=== PATIENT | male | born 1975 | race Caucasian/White ===

== ENCOUNTER 2020-03-08 17:39 | Emergency (ER) | payer OTHER ==
[~2020-03-08] VITALS: Ht 177.8 cm; Wt 86.2 kg
--- OUTSIDE RECORDS SUMMARY | ~2020-03-08 | XMS | Encounter Summary ---
Demographics + + + | Address | [address] | | | [place] [address] | + + + | Home Phone | | + + + | Preferred Language | Unknown | + + + | Marital Status | | + + + | Scientology Affiliation | Unknown | + + + | Race | White | + + + | Ethnic Group | Unknown | + + + Author + + + | Author | [facility] | | | and [place] | + + + | Organization | [facility] | | | and [place] | + + + | Address | Unknown | + + + | Phone | Unavailable | + + + Support + + +---------+ + | Name | Relationship | Address | Phone | + + +---------+ + | Patricio Delatorre | ECON | Unknown | | + + +---------+ + Care Team Providers + +------+ + | Care Resource Manager Name | Role | Phone | + +------+ + PCP | Unavailable | + +------+ + Encounter Details +--------+ + + + + | Date | Type | Department | Care Team | Description | +--------+ + + + + | 03/31/ | Abstract | [facility] | | | 2011 | | Conversion Location | SR | | | | | [address] | | | | | | [place], [place] | | | | | | [address] | | | | | | [phone] | | | +--------+ + + + + Social History + +-------+ +--------+------+ | Tobacco Use | Types | Packs/Day | Years | Date | | | | | Used | | + +-------+ +--------+------+ | Never Assessed | | | | | + +-------+ +--------+------+ + + + | Sex Assigned at | Date Recorded | | | | + + + | Not on file | | + + + documented as of this encounter Last Filed Vital Signs + + + + + | Vital Sign | Reading | Time Taken | Comments | + + + + + | Blood Pressure | 120/80 | 08/14/2011 12:00 AM | | | | | PST | | + + + + + | Pulse | - | - | | + + + + + | Temperature | - | - | | + + + + + | Respiratory Rate | - | - | | + + + + + | Oxygen Saturation | - | - | | + + + + + | Inhaled Oxygen | - | - | | | Concentration | | | | + + + + + | Weight | 83 kg (183 lb) | 08/14/2011 12:00 AM | | | | | PST | | + + + + + | Height | 177.8 cm (5' 10") | 07/07/2011 12:00 AM | | | | | PST | | + + + + + | Body Mass Index | 26.26 | 07/07/2011 12:00 AM | | | | | PST | | + + + + + documented in this encounter Plan of Treatment Not on filedocumented as of this encounter Visit Diagnoses Not on filedocumented in this encounter
--- OUTSIDE RECORDS SUMMARY | ~2020-03-08 | XMS | Encounter Summary ---
Demographics + + + | Address | [address] | | | [place] [address] | + + + | Home Phone | | + + + | Preferred Language | Unknown | + + + | Marital Status | | + + + | Pentecostalism Affiliation | Unknown | + + + | Race | White | + + + | Ethnic Group | Unknown | + + + Author + + + | Author | [facility] | | | and [place] | + + + | Organization | [facility] | | | and [...] Team Providers + +------+ + | Care Detective Captain Name | Role | Phone | + +------+ + PCP | Unavailable | + +------+ + Encounter Details +--------+ + + + + | Date | Type | Department | Care Team | Description | +--------+ + + + + | 07/30/ | [facility] | [facility] | Chester Brennan | | | 2011 | Encounter | MED CTR XRAY [address] | MD [address] | | | | | [place] | [address] [place] | | | | | [place], [place] [address] | [place] [address] | | | | | [phone] | [phone] | | | | | | | | +--------+ + + + [...] + + documented as of this encounter Miscellaneous Notes Miscellaneous - Chester Brennan MD - 07/30/2011 9:08 AM PSTDATE: 07/30/2011 HOLTER MONITOR REPORT REFERRING PHYSICIAN: Chester Brennan MD PhD INDICATION: Bradycardia. RESULTS: A total of 23 hours and 54 minutes were analyzed with the heart rate ranging from a minium of 43 to a maximum of 149 with a mean heart rate of 67 beats per minute. Underlyi ng rhythm was sinus. There were no ventricular ectopic beats seen. There were 124 isolated PAC's, including 3 couplets, but no significant sustained dysrhythmias were observed. The p atient's periods of bradycardia coincided with overnight hours from 2 a.m. until 9 a.m. No symptoms were recorded. There were no pauses greater than 2.0 seconds observed. IMPRESSION: 24-hour Holter monitor notable for underlying sinus rhythm with mean heart of 67 beats per minute, occasional PAC's in the absence of any reported symptoms, and no signi ficant dysrhythmias. DICTATED BY: Chester Brennan MD PhD Cardiology JOB #: [id number] EXT JOB #:[id number] EDITED: 08/05/2011 10:02 <Electronically Signed by Rui Brennan MD> 08/05/11 1420 documented in this encounter Plan of Treatment Not on filedocumented as of this encounter Procedures + +--------+ + + + | Procedure Name | Priori | Date/Time | Associated Diagnosis | Comments | | | ty | | | | + +--------+ + + + | ECHO COMPLETE | | 07/30/2011 | | Results for this | | | | 9:08 AM | | procedure are in the | | | | PST | | results section. | + +--------+ + + + documented in this encounter Results ECHO Complete (07/30/2011 9:08 AM PST) + + | Specimen | + + | | + + + + + | Narrative | Performed At | + + + | [facility] Diagnostic Imaging Department | [facility] | | [address] [facility] | [facility] | | E C H O C A R D | DIAG IMG | | I O G R A P H Y R E P O R T HEIGHT: 5'10" | | | WEIGHT: 190# INSERT CUTTER: KH REFERRING DR: BARBARA | | | READING DR: BARBARA DIAGNOSIS: BRADYCARDIA | | | | | | M E A S U R E M E N T S | | | Aortic Root: 37 mm LV Diameter-diastole: | | | 48 mm Aortic Cusp Sep : 22 mm LV | | | Diameter--systole: 32 mm LA: 36 mm | | | Fractional Shortenin % IVS--diastole: | | | 8 mm PFV Aortic Valve: IVS--systole: | | | 12 mm MPG Mitral Valve: mmHg | | | LVPW--diastole: 8 mm PFV TR Jet: | | | 1.70 m/s LVPW--systole: 13 mm RA/RV | | | PP.6 mmHg | | | | | | ECHOCARDIOGRAM: 07/30/2011 INDICATION: Bradycardia. | | | TECHNICAL: The quality of the study is good. This is a complete | | | transthoracic echocardiogram including 2D, M-Mode, Doppler and color | | | flow Doppler analysis. HEMODYNAMICS: Patient was in underlying | | | sinus bradycardia through the procedure with a ventricular rate in | | | the upper 50's. RESULTS: CHAMBERS: The left ventricle of | | | normal end diastolic and end systolic dimensions with normal wall | | | thickness and regional wall motion. LVEF is calculated at 60%. | | | Bilateral atria are of normal size. The right ventricle is of | | | normal size and systolic function. VALVES: The aortic valve | | | is a normal trileaflet valve with good opening. There is no | | | stenosis or insufficiency noted. Mitral valve is normal without | | | any significant thickening or prolapse. There is trace regurgitation | | | seen. Tricuspid valve is normal with trace amount insufficiency | | | with a peak velocity of 1.7 meters per second consistent with normal | | | right sided pressures. The pulmonic valve is normal with trace | | | insufficiency. MISCELLANEOUS: Aortic root measures 37 mm. | | | Pericardium is normal without any pericardial effusion. Inferior | | | vena cava is of normal size, with normal respiratory collapse | | | consistent with normal right atrial pressures. DIASTOLOGY: | | | Mitral end flow diastolic parameters are within normal limits. | | | IMPRESSION: 1. NORMAL LEFT VENTRICULAR SIZE AND SYSTOLIC | | | FUNCTION WITH LVEF OF 60%. 2. NO SIGNIFICANT VALVULAR DISEASE | | | NOTED. 3. NORMAL LEFT VENTRICULAR DIASTOLIC FUNCTION. 4. | | | NORMAL RIGHT SIDED PRESSURES. Dictated Date/Time: 07/30/2011 | | | 10:53 Transcribed Date/Time: 07/30/2011 12:31 Design Transferrer: | | | <Electronically Signed by Rui Brennan MD> 07/31/11 1351 | | + + + + + | Procedure Note | + + | Oscar, Rad Conversion - 08/25/2013 4:[address] [facility] | | Diagnostic Imaging Department | | [address] [facility], [place] | | | | | | | | E C H O C A R D I O G R A P H Y R E P O R T | | | | | | HEIGHT: 5'10" WEIGHT: 190# INSERT CUTTER: K[facility] | | REFERRING DR: BARBARA MOCK DR: BARBARA | | | | DIAGNOSIS: BRADYCARDIA | | | | | | M E A S U R E M E N T S | | | | Aortic Root: 37 mm LV Diameter-diastole: 48 mm | | Aortic Cusp Sep : 22 mm LV Diameter--systole: 32 mm | | LA: 36 mm Fractional Shortenin % | | IVS--diastole: 8 mm PFV Aortic Valve: | | IVS--systole: 12 mm MPG Mitral Valve: mmHg | | LVPW--diastole: 8 mm PFV TR Jet: 1.70 m/s | | LVPW--systole: 13 mm RA/RV PP.6 mmHg | | | | | | | | ECHOCARDIOGRAM: 07/30/2011 | | | | INDICATION: Bradycardia. | | | | TECHNICAL: The quality of the study is good. This is a complete transthoracic | | echocardiogram including 2D, M-Mode, Doppler and color flow Doppler analysis. | | | | HEMODYNAMICS: Patient was in underlying sinus bradycardia through the | | procedure with a ventricular rate in the upper 50's. | | | | RESULTS: | | | | CHAMBERS: The left ventricle of normal end diastolic and end systolic | | dimensions with normal wall thickness and regional wall motion. LVEF is | | calculated at 60%. Bilateral atria are of normal size. The right ventricle is | | of normal size and systolic function. | | | | VALVES: The aortic valve is a normal trileaflet valve with good opening. | | There is no stenosis or insufficiency noted. Mitral valve is normal without | | any significant thickening or prolapse. There is trace regurgitation seen. | | Tricuspid valve is normal with trace amount insufficiency with a peak velocity | | of 1.7 meters per second consistent with normal right sided pressures. The | | pulmonic valve is normal with trace insufficiency. | | | | MISCELLANEOUS: Aortic root measures 37 mm. Pericardium is normal without any | | pericardial effusion. Inferior vena cava is of normal size, with normal | | respiratory collapse consistent with normal right atrial pressures. | | | | DIASTOLOGY: Mitral end flow diastolic parameters are within normal limits. | | | | IMPRESSION: | | 1. NORMAL LEFT VENTRICULAR SIZE AND SYSTOLIC FUNCTION WITH LVEF OF 60%. | | | | 2. NO SIGNIFICANT VALVULAR DISEASE NOTED. | | | | 3. NORMAL LEFT VENTRICULAR DIASTOLIC FUNCTION. | | | | 4. NORMAL RIGHT SIDED PRESSURES. | | | | Dictated Date/Time: 07/30/2011 10:53 | | Transcribed Date/Time: 07/30/2011 12:31 | | Design Transferrer: | | <Electronically Signed by Rui Brennan MD> 07/31/11 1351 | + + + +---------+ + + | Performing | Address | City/State/Zipcode | Phone Number | | Organization | | | | + +---------+ + + | [place] | | | | | [place] | | | | + +---------+ + + documented in this encounter Visit Diagnoses Not on filedocumented in this encounter
--- OUTSIDE RECORDS SUMMARY | ~2020-03-08 | XMS | Clinical Summary ---
Demographics + + + | Address | [address] | | | [place] [address] | + + + | Home Phone | | + + + | Preferred Language | Unknown | + + + | Marital Status | | + + + | Adventist Affiliation | Unknown | + + + | Race | White | + + + | Ethnic Group | Unknown | + + + Author + + + | Author | [facility] | | | and [place] | + + + | Organization | [facility] | | | and [...] Team Providers + +------+ + | Care Industrial Gas Production Operator Name | Role | Phone | + +------+ + PCP | Unavailable | + +------+ + Allergies No Known Allergies Medications Not on file Active Problems + + + | Problem | Noted Date | + + + | ABNORMAL ELECTROCARDIOGRAM | | + + + | SINUS BRADYCARDIA | | + + + Social History + +-------+ [...] on file | | + + + Last Filed Vital Signs + + + [...] | | + + + + + Plan of Treatment + + +-------+ + | Health Maintenance | Due Date | Last | Comments | | | | Done | | + + +-------+ + | Vaccine: | | | | | Dtap/Tdap/Td (1 - | 4 | | | | Tdap) | | | | + + +-------+ + | Vaccine: Influenza | | | | | (#1) | 0 | | | + + +-------+ + Results Not on filefrom Last 3 Months
[2020-03-08] MEDS ORDERED: NORCO 5-325 TA1 EACH PO (19:19)
[2020-03-08] MEDS ORDERED: CRUTCH1 EACH MISC (19:48)
== END 2020-03-08 19:50 | disposition home or self-care (01) ==
LOC: ED 17:39
DX: S92.021A Displaced fracture of anterior process of right calcaneus, initial encounter for closed fracture (principal); F17.200 Nicotine dependence, unspecified, uncomplicated; X58.XXXA Exposure to other specified factors, initial encounter
CPT/HCPCS: 73630; 99283-25

== ENCOUNTER 2021-04-29 12:05 | Emergency (ER) | payer OTHER ==
[~2021-04-29] VITALS: Ht 177.8 cm; Wt 77.1 kg
[~2021-04-29 12:05] MED LIST: CRUTCH1 EACH MISC; NORCO 5-325 TA1 EACH PO
== END 2021-04-29 17:09 | disposition home or self-care (01) ==
LOC: ED 12:05
DX: S46.912A Strain of unspecified muscle, fascia and tendon at shoulder and upper arm level, left arm, initial encounter (principal); R20.0 Anesthesia of skin; F17.200 Nicotine dependence, unspecified, uncomplicated; W01.0XXA Fall on same level from slipping, tripping and stumbling without subsequent striking against object, initial encounter; Y99.0 Civilian activity done for income or pay
CPT/HCPCS: 73030; 99283-25; A9270